=== PATIENT | male | born 1960 | race Two or more races ===

== ENCOUNTER 2023-08-06 12:32 | Emergency (ER) | payer OTHER ==
[~2023-08-06] VITALS: Ht 152.4 cm; Wt 74.4 kg
[2023-08-06] MEDS ORDERED: GUAI-671 PO (14:33)
[2023-08-06 15:10] VITALS: BP 148/100; TEMP 97.8; O2SAT 98
== END 2023-08-06 15:11 | disposition home or self-care (01) ==
LOC: ER 12:49
DX: J11.1 Influenza due to unidentified influenza virus with other respiratory manifestations (principal); I10 Essential (primary) hypertension; Z20.822 Contact with and (suspected) exposure to COVID-19
CPT/HCPCS: 99284; 71045; 87426; 87804 ×2; C9803